=== PATIENT | female | born 1960 | race Caucasian/White ===

== ENCOUNTER → 2017-01-17 | Day surgery (SDC) | payer OTHER ==
[~2017-01-17] VITALS: Ht 165.1 cm; Wt 64.0 kg
[2017-01-17 08:44] LABS: HGB 13.8 g/dl (12.5-16.0); MCH 30.1 pg (25.0-31.0); MCHC 32.9 g/dL (32.0-36.0); MCV 91.7 fL (78.0-100.0); MPV 10.2 fL (6.0-9.5); RBC 4.58 M/uL (4.20-5.40); RDW 12.3 % (11.5-14.0); WBC 4.6 K/uL (4.0-10.5)
[2017-01-17 09:32] LABS: BILIRUBIN - TOTAL 1.2 mg/dL (0.1-1.0); CREATININE 0.7 mg/dL (0.5-1.0); GLOBULIN (CALCULATION) 2.5 g/dL (2.2-4.2); POTASSIUM 4.1 mmol/L (3.5-5.1); TOTAL PROTEIN 6.5 g/dL (6.4-8.3)
== END | disposition home or self-care (01) ==
LOC: FAS 08:00
PROVIDERS: Surgery
DX: K81.1 Chronic cholecystitis (principal); K66.0 Peritoneal adhesions (postprocedural) (postinfection); K21.9 Gastro-esophageal reflux disease without esophagitis; K58.9 Irritable bowel syndrome, unspecified; F32.9 Major depressive disorder, single episode, unspecified
CPT/HCPCS: 36415; 74300; 80053; 88304; J2405; J2704; J2710; J3010; Q9962